=== PATIENT | female | born 1960 | race Caucasian/White ===

== ENCOUNTER 2016-10-10 09:28 | Observation (INO) | payer SELFPAY ==
[~2016-10-10] VITALS: Ht 162.6 cm; Wt 115.6 kg
[~2016-10-10 09:28] MED LIST: ADLT ASA LOW81 MG PO; AMLODIPINE10 MG OR; AMLODIPINE5 MG PO; AMOXICILLIN500 MG PO; ASPIRIN81 MG PO; CEPHALEXIN500 MG PO; CHERATUSSIN OR; CIPROFLOXACN500 MG PO; CLONIDINE0.1 MG PO; CRESTOR20 MG PO; CYCLOBENZAPR10 MG OR; ESCITALOPRAM OX10 MG PO; FLEXERIL OR; FLEXERIL PO; FLEXERIL10 MG PO; FLONASE NASAL50 MCG; HYDROCHLORO25 MG/TAB PO; HYDROCHLOROT25 MG OR; ISOSORB MONO60 MG PO; LISINOP/HCTZ1 TA1 PO; LISINOPRIL40 MG OR; LISINOPRIL40 MG PO; LORTAB 10-325 M1 TAB PO; LORTAB 5 OR; LOSARTAN POT100 MG PO; LOVASTATIN40 M1 OR; MECLIZINE25 MG PO; METOPROL TAR50 MG PO; MEVACOR20 MG OR; MOTRIN800 MG PO; NAPROSYN500 MG OR; NAPROXEN EC500 MG OR; NAPROXEN500 MG PO; NITROGLYCER0.4 MG PO; NORVASC10 M1 OR; OMEPRAZOLE20 MG PO; OXYCODONE HCL5 MG PO; PANTOPRAZOLE SO40 MG PO; PLAVIX75 MG PO; PROTONIX40 MG PO; PYRIDIUM200 MG PO; ROBITUSSIN AC10 ML PO; SIMVASTATIN40 MG PO; TRAMADOL HCL100 MG OR; TRAMADOL HCL50 MG PO; ULTRAM50 M1 PO; ULTRAM50 MG OR; ZESTRIL OR; ZITHROMAX250 MG OR; ZOFRAN ODT4 MG SL
--- NOTE | 2016-10-10 09:30 | NUR ---
PT TO ROOM 10 VIA WHEELCHAIR.
[2016-10-10] MEDS ORDERED: LISINOP/HCTZ1 TA2 PO (09:58)
[2016-10-10 10:22] LABS: HEMATOCRIT 43.6 % (37.0-47.0); HEMOGLOBIN 14.4 g/dl (12.0-16.0); IMMATURE GRANULOCYTES 0.2 % (0.0-1.0); MEAN CELL VOLUME 89.3 fL CALC (80.0-100.0); MEAN CORPUSCULAR HGB 29.5 pG CALC (26.0-32.0); NEUT# 3.38 thou/uL (2.00-7.15); RED BLOOD COUNT 4.88 mill/uL (4.20-5.60); RED CELL DISTRI WIDTH 12.8 % (11.5-15.5)
--- NOTE | 2016-10-10 10:28 | NUR ---
PT UP AMB TO RESTROOM WITHOUT COMPLAINT. VSS. NO SOB, NO CP
[2016-10-10 10:36] LABS: ALKALINE PHOSPHATASE 99 u/l (38-126); AMYLASE 60 u/l (30-110); ANION GAP 14 (6-22 (CALC)); BILIRUBIN, TOTAL 0.6 mg/dL (0.0-1.4); BUN 15 mg/dL (7-17); BUN/CREATININE RATIO 24 (12-20 (CALC)); CALCIUM 9.4 mg/dL (8.4-10.2); CARBON DIOXIDE 26 mmol/l (22-30); CHLORIDE 106 mmol/l (95-108); CREATININE 0.6 mg/dL (0.5-1.0); GFR > 60 ML/MIN (>=60 (CALC)); GFR FOR AFR.AMER. > 60 ML/MIN (>=60 (CALC)); GLUCOSE 114 mg/dL (65-105); LIPASE 176 u/l (23-300); POTASSIUM 4.3 mmol/l (3.5-5.1); SGOT/AST 81 u/l (14-36); SGPT/ALT 122 u/l (9-52); SODIUM 141 mmol/l (137-146); TOTAL PROTEIN 7.4 g/dL (6.3-8.2)
[2016-10-10 10:44] LABS: PROTHROMBIN TIME 10.4 SECONDS (9.0-12.5)
[2016-10-10 10:48] LABS: MYOGLOBIN 44 ng/mL (0 - 62)
--- NOTE | 2016-10-10 11:13 | NUR ---
PT RESTING IN NO ACUTE DISTRESS. DENIES PAIN OR PRESSURE, NO SOB. SR X2 FOR SAFETY.
--- NOTE | 2016-10-10 12:10 | NUR ---
PT RT SIDE LYING,STATES NO FURTHER EPISODES OF CP OR PRESSURE. VSS. PT APPEARS COMFORTABLE
--- NOTE | 2016-10-10 12:28 | NUR ---
ATTEMTPED TO CALL REPORT, NURSE UNAVAILABLE AT THIS TIME.
[2016-10-10 12:38] LABS: URINE BILIRUBIN - DIPSTICK NEGATIVE (NEGATIVE); URINE BLOOD DIPSTICK NEGATIVE (NEGATIVE); URINE CLARITY CLEAR; URINE COLOR YELLOW; URINE GLUCOSE - DIPSTICK NEGATIVE (NEGATIVE); URINE KETONE NEGATIVE (NEGATIVE); URINE LEUK ESTERASE NEGATIVE (NEGATIVE); URINE NITRITE - DIPSTICK NEGATIVE (Negative); URINE PROTEIN - DIPSTICK NEGATIVE (NEG-TRACE); URINE SPECIFIC GRAVITY 1.015; URINE UROBILINOGEN - DIPSTICK 0.2 E.U./dL (0.2)
--- NOTE | 2016-10-10 12:49 | NUR ---
CALLED REPORT TO SONA KAPADIA MS2.PT TRANSPORTED TO [facility] VIA IN STABLE CONDITION
--- NOTE | 2016-10-10 12:56 | NUR ---
PT ARRIVED TO FLOOR VIA WC ACCOMPANIED BY SONA MEJIA. PT ORIENTED TO ROOM AND EQUIPMENT. STEADY GAIT. DENIES CHEST PAIN AT THIS TIME. REPORTS NUMBNESS TO LEFT ARM, UNCHANGED SINCE BEFORE ARRIVING IN HOSPITAL. REPORTING OF CONCERNS ENCOURAGED. PLAN OF CARE DISCUSSED. CALL LIGHT REVIEWED AND IN REACH. PT STATES UNDERSTANDING.
[2016-10-10 13:17] VITALS: BP 151/79
[2016-10-10 15:24] VITALS: BP 104/43
[2016-10-10 16:49] VITALS: BP 127/57
--- NOTE | 2016-10-10 17:45 | NUR ---
PT DENIES CHEST PAIN. NO COMPLAINTS AT THIS TIME. REPORTING OF CONCERNS ENCOURAGED.
--- NOTE | 2016-10-10 19:00 | NUR ---
RECEIVED REPORT ON PATIENT. NO ACUTE DISTRESS NOTED. PATIENT RESTING IN BED
[2016-10-10 19:45] VITALS: BP 111/57
--- NOTE | 2016-10-11 | NUR ---
PATIENT RESTING IN BED QUIETLY. NO ACUTE DISTRESS NOTED.
[2016-10-11 00:35] VITALS: BP 106/57
--- NOTE | 2016-10-11 04:00 | NUR ---
PATIENT IS RESTING COMFORTABLY. NO ACUTE DISTRESS NOTED.
[2016-10-11 04:10] VITALS: BP 125/65
--- NOTE | 2016-10-11 07:13 | NUR ---
REPORT RECEIVED FROM SONA TRONCOSO. PT SLEEPING AT THIS TIME. CALL LIGHT WITHIN REACH. WILL CONTINUE TO MONITOR.
[2016-10-11 08:42] VITALS: BP 128/59
[2016-10-11 08:44] VITALS: BP 128/59
--- NOTE | 2016-10-11 09:00 | NUR ---
PT SITTING ON COUCH AT BEDSIDE. DENIES PAIN. REPORTING OF CONCERNS ENCOURAGED. PLAN OF CARE DISCUSSED. CALL LIGHT REVIEWED AND IN REACH. PT STATES ANTICIPATION OF DISCHARGE. DISCHARGE PROCESS DISCUSSED. PT STATES UNDERSTANDING.
[2016-10-11] MEDS ORDERED: ASPIRIN EC81 MG PO (10:14)
--- NOTE | 2016-10-11 11:35 | NUR ---
EDUCATION PAMPHLETS PROVIDED TO PT ON CARDIAC DIET.
--- NOTE | 2016-10-11 12:58 | NUR ---
Discharge instructions given. Patient verbalizes understanding of same. Discharged in stable condition via Ambulatory to Home with family. All belongings sent with pt.
== END 2016-10-11 12:50 | disposition home or self-care (01) | DRG 313 ==
LOC: ENPENDDIS → ED 09:28 → ED-I 11:07 → ED 12:00 → MS2 12:01
PROVIDERS: Emergency Medicine; ADMIT Internal Medicine; ATTEND Internal Medicine
PROC: 3E0234Z Introduction of Serum, Toxoid and Vaccine into Muscle, Percutaneous Approach (ICD-10-PCS; principal; 2016-10-11)
DX: R07.9 Chest pain, unspecified (principal); I25.2 Old myocardial infarction; I10 Essential (primary) hypertension; I25.10 Atherosclerotic heart disease of native coronary artery without angina pectoris; E78.5 Hyperlipidemia, unspecified; F32.9 Major depressive disorder, single episode, unspecified; Z86.73 Personal history of transient ischemic attack (TIA), and cerebral infarction without residual deficits; M19.90 Unspecified osteoarthritis, unspecified site; K21.9 Gastro-esophageal reflux disease without esophagitis; R79.89 Other specified abnormal findings of blood chemistry; E78.00 Pure hypercholesterolemia, unspecified; R06.02 Shortness of breath; Z23 Encounter for immunization; Z91.14 Patient's other noncompliance with medication regimen; Z95.5 Presence of coronary angioplasty implant and graft
CPT/HCPCS: G0378

== ENCOUNTER 2017-01-04 10:26 | Emergency (ER) | payer SELFPAY ==
[~2017-01-04] VITALS: Ht 162.6 cm; Wt 120.0 kg
[~2017-01-04 10:26] MED LIST changes: +ASPIRIN EC81 MG PO; +LISINOP/HCTZ1 TA2 PO
[2017-01-04] MEDS ORDERED: LEXAPRO10 MG PO (10:32)
[2017-01-04] MEDS ORDERED: SIMVASTATIN40 MG PO (10:32)
[2017-01-04] MEDS ORDERED: MOTRIN800 MG PO (13:13)
[2017-01-04] MEDS ORDERED: FLEXERIL PO (13:13)
[2017-01-04] MEDS ORDERED: TRAMADOL HYDROC50 MG PO (13:13)
[2017-01-04 13:16] VITALS: BP 158/89
== END 2017-01-04 13:22 | disposition home or self-care (01) | DRG 552 ==
LOC: ED 10:26
DX: M54.42 Lumbago with sciatica, left side (principal); M54.41 Lumbago with sciatica, right side; X50.0XXA Overexertion from strenuous movement or load, initial encounter; Y93.89 Activity, other specified; Y92.89 Other specified places as the place of occurrence of the external cause

== ENCOUNTER 2017-02-18 18:33 | Emergency (ER) | payer SELFPAY ==
[~2017-02-18] VITALS: Ht 162.6 cm; Wt 117.0 kg
[~2017-02-18 18:33] MED LIST changes: +LEXAPRO10 MG PO; +TRAMADOL HYDROC50 MG PO
[2017-02-18] MEDS ORDERED: AMOXICILLIN500 MG PO (18:56)
[2017-02-18] MEDS ORDERED: PERCOCET 5/325M1 TAB PO (18:56)
[2017-02-18 19:13] VITALS: BP 116/56
== END 2017-02-18 19:20 | disposition home or self-care (01) | DRG 153 ==
LOC: ED 18:33
DX: H66.92 Otitis media, unspecified, left ear (principal); I10 Essential (primary) hypertension; T16.2XXA Foreign body in left ear, initial encounter; I25.2 Old myocardial infarction; E78.5 Hyperlipidemia, unspecified; F32.9 Major depressive disorder, single episode, unspecified; X58.XXXA Exposure to other specified factors, initial encounter; Z86.73 Personal history of transient ischemic attack (TIA), and cerebral infarction without residual deficits; Z95.5 Presence of coronary angioplasty implant and graft

== ENCOUNTER 2017-06-09 17:05 | Emergency (ER) | payer OTHER ==
[~2017-06-09] VITALS: Ht 162.6 cm; Wt 118.0 kg
[~2017-06-09 17:05] MED LIST changes: +PERCOCET 5/325M1 TAB PO
[2017-06-09] MEDS ORDERED: LEXAPRO10 MG PO (18:03)
[2017-06-10] MEDS ORDERED: PERCOCET 5/325M1 TAB PO (05:18)
[2017-06-10 05:54] VITALS: BP 182/80
== END 2017-06-10 06:00 | disposition home or self-care (01) | DRG 605 ==
LOC: ED 17:05
DX: S40.022A Contusion of left upper arm, initial encounter (principal); S80.02XA Contusion of left knee, initial encounter; S80.01XA Contusion of right knee, initial encounter; I10 Essential (primary) hypertension; E78.5 Hyperlipidemia, unspecified; G89.29 Other chronic pain; M54.5 Low back pain; I25.2 Old myocardial infarction; F32.9 Major depressive disorder, single episode, unspecified; W01.0XXA Fall on same level from slipping, tripping and stumbling without subsequent striking against object, initial encounter; Y93.89 Activity, other specified; Y92.512 Supermarket, store or market as the place of occurrence of the external cause; Z86.73 Personal history of transient ischemic attack (TIA), and cerebral infarction without residual deficits; Z95.5 Presence of coronary angioplasty implant and graft

== ENCOUNTER 2017-09-12 15:05 | Emergency (ER) | payer SELFPAY ==
[~2017-09-12] VITALS: Ht 162.6 cm; Wt 114.0 kg
[2017-09-12] MEDS ORDERED: NITROSTAT0.4 MG SL (15:31)
[2017-09-12 16:10] LABS: URINE BILIRUBIN - DIPSTICK NEGATIVE (NEGATIVE); URINE BLOOD DIPSTICK NEGATIVE (NEGATIVE); URINE COLOR YELLOW; URINE GLUCOSE - DIPSTICK NEGATIVE (NEGATIVE); URINE KETONE TRACE mg/dL (NEGATIVE); URINE LEUK ESTERASE TRACE (NEGATIVE); URINE NITRITE - DIPSTICK NEGATIVE (Negative); URINE PROTEIN - DIPSTICK NEGATIVE (NEG-TRACE); URINE SPECIFIC GRAVITY 1.025
[2017-09-12 16:12] LABS: HEMATOCRIT 47.4 % (37.0-47.0); HEMOGLOBIN 15.7 g/dl (12.0-16.0); IMMATURE GRANULOCYTES 0.1 % (0.0-1.0); MEAN CORPUSCULAR HGB 30.5 pG CALC (26.0-32.0); MEAN CORPUSCULAR HGB CONC 33.1 g/L CALC (32.0-36.0); NEUT# 4.45 thou/uL (2.00-7.15); RED BLOOD COUNT 5.15 mill/uL (4.20-5.60); RED CELL DISTRI WIDTH 12.7 % (11.5-15.5); URINE CLARITY CLEAR
[2017-09-12 16:23] LABS: ALBUMIN 4.4 g/dL (3.2-5.0); ALKALINE PHOSPHATASE 120 u/l (38-126); ANION GAP 17 (6-22 (CALC)); BILIRUBIN, TOTAL 0.7 mg/dL (0.0-1.4); BUN 17 mg/dL (7-17); BUN/CREATININE RATIO 19 (12-20 (CALC)); CARBON DIOXIDE 27 mmol/l (22-30); CHLORIDE 106 mmol/l (95-108); CREATININE 0.9 mg/dL (0.5-1.0); GFR > 60 ML/MIN (>=60 (CALC)); GFR FOR AFR.AMER. > 60 ML/MIN (>=60 (CALC)); LIPASE 220 u/l (23-300); POTASSIUM 4.4 mmol/l (3.5-5.1); SGOT/AST 124 u/l (14-36); SGPT/ALT 170 u/l (9-52); SODIUM 145 mmol/l (137-146); TOTAL PROTEIN 7.7 g/dL (6.3-8.2)
[2017-09-12] MEDS ORDERED: HYDROCO/APAP1 TA9 PO (17:50)
[2017-09-12] MEDS ORDERED: ZOFRAN4 M1 PO (17:50)
[2017-09-12 17:53] VITALS: BP 142/70
== END 2017-09-12 18:01 | disposition home or self-care (01) | DRG 392 ==
LOC: ED 15:05
PROVIDERS: Family Medicine
DX: R10.11 Right upper quadrant pain (principal); E78.5 Hyperlipidemia, unspecified; I10 Essential (primary) hypertension; M19.90 Unspecified osteoarthritis, unspecified site; I25.2 Old myocardial infarction; Z86.73 Personal history of transient ischemic attack (TIA), and cerebral infarction without residual deficits; Z95.5 Presence of coronary angioplasty implant and graft
CPT/HCPCS: Q9967

== ENCOUNTER 2017-10-02 08:34 | Emergency (ER) | payer SELFPAY ==
[~2017-10-02] VITALS: Ht 162.6 cm; Wt 119.4 kg
[~2017-10-02 08:34] MED LIST changes: +HYDROCO/APAP1 TA9 PO; +NITROSTAT0.4 MG SL; +ZOFRAN4 M1 PO
[2017-10-02 09:43] LABS: URINE BILIRUBIN - DIPSTICK NEGATIVE (NEGATIVE); URINE BLOOD DIPSTICK NEGATIVE (NEGATIVE); URINE CLARITY CLEAR; URINE COLOR YELLOW; URINE GLUCOSE - DIPSTICK NEGATIVE (NEGATIVE); URINE KETONE NEGATIVE (NEGATIVE); URINE LEUK ESTERASE NEGATIVE (NEGATIVE); URINE NITRITE - DIPSTICK NEGATIVE (Negative); URINE PH 5.5 (4.5-8.0); URINE PROTEIN - DIPSTICK NEGATIVE (NEG-TRACE); URINE SPECIFIC GRAVITY 1.025; URINE UROBILINOGEN - DIPSTICK 0.2 E.U./dL (0.2)
[2017-10-02 09:47] LABS: HEMATOCRIT 47.4 % (37.0-47.0); HEMOGLOBIN 15.6 g/dl (12.0-16.0); IMMATURE GRANULOCYTES 0.2 % (0.0-1.0); MEAN CELL VOLUME 91.3 fL CALC (80.0-100.0); MEAN CORPUSCULAR HGB 30.1 pG CALC (26.0-32.0); MEAN CORPUSCULAR HGB CONC 32.9 g/L CALC (32.0-36.0); NEUT# 6.23 thou/uL (2.00-7.15); RED BLOOD COUNT 5.19 mill/uL (4.20-5.60); RED CELL DISTRI WIDTH 12.6 % (11.5-15.5)
[2017-10-02 10:10] LABS: ALBUMIN 4.2 g/dL (3.2-5.0); ALKALINE PHOSPHATASE 133 u/l (38-126); ANION GAP 18 (6-22 (CALC)); BILIRUBIN, TOTAL 0.8 mg/dL (0.0-1.4); BUN 14 mg/dL (7-17); BUN/CREATININE RATIO 18 (12-20 (CALC)); CARBON DIOXIDE 26 mmol/l (22-30); CHLORIDE 103 mmol/l (95-108); CREATININE 0.8 mg/dL (0.5-1.0); GFR > 60 ML/MIN (>=60 (CALC)); GFR FOR AFR.AMER. > 60 ML/MIN (>=60 (CALC)); LIPASE 149 u/l (23-300); POTASSIUM 4.4 mmol/l (3.5-5.1); SGOT/AST 67 u/l (14-36); SGPT/ALT 129 u/l (9-52); SODIUM 142 mmol/l (137-146); TOTAL PROTEIN 7.6 g/dL (6.3-8.2)
[2017-10-02] MEDS ORDERED: MOTRIN400 MG PO (10:30)
[2017-10-02] MEDS ORDERED: ONDANSETRON4 MG PO (10:30)
[2017-10-02 10:41] VITALS: BP 154/87
== END 2017-10-02 11:01 | disposition home or self-care (01) | DRG 392 ==
LOC: ED 08:34
PROVIDERS: Family Medicine
DX: R10.11 Right upper quadrant pain (principal); R11.0 Nausea; R50.9 Fever, unspecified; R74.0 Nonspecific elevation of levels of transaminase and lactic acid dehydrogenase [LDH]
CPT/HCPCS: Q9967

== ENCOUNTER 2017-10-09 12:20 | Emergency (ER) | payer SELFPAY ==
[~2017-10-09] VITALS: Ht 162.6 cm; Wt 120.0 kg
[~2017-10-09 12:20] MED LIST changes: +MOTRIN400 MG PO; +ONDANSETRON4 MG PO
[2017-10-09 13:15] VITALS: BP 197/93
[2017-10-09] MEDS ORDERED: CORTISPORIN OTI10 ML AS (13:20)
[2017-10-09] MEDS ORDERED: AMOXICILLIN500 M2 PO (13:20)
[2017-10-09] MEDS ORDERED: CORTISPORIN OTI10 ML AD (13:20)
== END 2017-10-09 13:44 | disposition home or self-care (01) | DRG 156 ==
LOC: ED 12:20
PROC: 09C47ZZ Extirpation of Matter from Left External Auditory Canal, Via Natural or Artificial Opening (ICD-10-PCS; principal; 2017-10-09)
DX: T16.2XXA Foreign body in left ear, initial encounter (principal); E78.5 Hyperlipidemia, unspecified; H66.92 Otitis media, unspecified, left ear; I10 Essential (primary) hypertension; I25.2 Old myocardial infarction; M19.90 Unspecified osteoarthritis, unspecified site; X58.XXXA Exposure to other specified factors, initial encounter; Z95.5 Presence of coronary angioplasty implant and graft; Z86.73 Personal history of transient ischemic attack (TIA), and cerebral infarction without residual deficits

== ENCOUNTER 2018-01-10 18:54 | Observation (INO) | payer SELFPAY ==
[~2018-01-10] VITALS: Ht 162.6 cm; Wt 118.1 kg
[~2018-01-10 18:54] MED LIST changes: +AMOXICILLIN500 M2 PO; +CORTISPORIN OTI10 ML AD; +CORTISPORIN OTI10 ML AS
[2018-01-10] MEDS ORDERED: METOPROL TAR25 MG PO (19:25)
[2018-01-10] MEDS ORDERED: PREVACID15 M3 PO (19:26)
[2018-01-10] MEDS ORDERED: DEPRESSION (19:26)
[2018-01-10 19:49] LABS: HEMATOCRIT 42.8 % (37.0-47.0); HEMOGLOBIN 14.1 g/dl (12.0-16.0); IMMATURE GRANULOCYTES 0.5 % (0.0-1.0); MEAN CELL VOLUME 93.2 fL CALC (80.0-100.0); MEAN CORPUSCULAR HGB 30.7 pG CALC (26.0-32.0); MEAN CORPUSCULAR HGB CONC 32.9 g/L CALC (32.0-36.0); NEUT# 8.44 thou/uL (2.00-7.15); RED BLOOD COUNT 4.59 mill/uL (4.20-5.60); RED CELL DISTRI WIDTH 12.9 % (11.5-15.5)
[2018-01-10 20:10] LABS: ALBUMIN 4.1 g/dL (3.2-5.0); ALKALINE PHOSPHATASE 98 u/l (38-126); AMYLASE 56 u/l (30-110); ANION GAP 12 (6-22 (CALC)); BILIRUBIN, TOTAL 0.4 mg/dL (0.0-1.4); BUN 21 mg/dL (7-17); BUN/CREATININE RATIO 27 (12-20 (CALC)); CARBON DIOXIDE 25 mmol/l (22-30); CHLORIDE 112 mmol/l (95-108); CREATININE 0.8 mg/dL (0.5-1.0); GFR > 60 ML/MIN (>=60 (CALC)); GFR FOR AFR.AMER. > 60 ML/MIN (>=60 (CALC)); LIPASE 151 u/l (23-300); POTASSIUM 4.1 mmol/l (3.5-5.1); SGOT/AST 86 u/l (14-36); SGPT/ALT 157 u/l (9-52); SODIUM 145 mmol/l (137-146); TOTAL PROTEIN 7.5 g/dL (6.3-8.2)
[2018-01-10 21:05] VITALS: BP 153/85
[2018-01-11] VITALS (8 sets, daily range): BP systolic 148–192; BP diastolic 68–99
[2018-01-11 05:40] LABS: HEMATOCRIT 43.7 % (37.0-47.0); HEMOGLOBIN 14.1 g/dl (12.0-16.0); MEAN CELL VOLUME 94.8 fL CALC (80.0-100.0); MEAN CORPUSCULAR HGB 30.6 pG CALC (26.0-32.0); MEAN CORPUSCULAR HGB CONC 32.3 g/L CALC (32.0-36.0); RED BLOOD COUNT 4.61 mill/uL (4.20-5.60)
[2018-01-11 05:54] LABS: ANION GAP 11 (6-22 (CALC)); BUN 20 mg/dL (7-17); BUN/CREATININE RATIO 26 (12-20 (CALC)); CALCULATED LDLCHOLESTEROL 177 mg/dL (62-129 (CALC)); CARBON DIOXIDE 29 mmol/l (22-30); CHLORIDE 108 mmol/l (95-108); CHOLESTEROL HDL RATIO 4.5 (<4.4 (CALC)); CREATININE 0.8 mg/dL (0.5-1.0); GFR > 60 ML/MIN (>=60 (CALC)); GFR FOR AFR.AMER. > 60 ML/MIN (>=60 (CALC)); HDL CHOLESTEROL 58 mg/dL (>=40); POTASSIUM 4.2 mmol/l (3.5-5.1); SODIUM 143 mmol/l (137-146); TOTAL CHOLESTEROL 256 mg/dl (0-199); TOTAL TRIGLYCERIDES 108 mg/dl (30-149); VLDL CHOLESTROL 22 mg/dl (2-49 (CALC))
== END 2018-01-11 06:45 | disposition short-term general hospital (02) | DRG 282 ==
LOC: ED 18:54 → ED-I 20:00 → ED 20:32 → MS2 20:33 → ICU 01-11 01:31
PROVIDERS: Family Medicine; ADMIT Internal Medicine; ATTEND Internal Medicine
DX: I21.4 Non-ST elevation (NSTEMI) myocardial infarction (principal); I10 Essential (primary) hypertension; E78.5 Hyperlipidemia, unspecified; M19.90 Unspecified osteoarthritis, unspecified site; I25.10 Atherosclerotic heart disease of native coronary artery without angina pectoris; I73.9 Peripheral vascular disease, unspecified; I25.2 Old myocardial infarction; Z91.14 Patient's other noncompliance with medication regimen; Z95.5 Presence of coronary angioplasty implant and graft; Z86.73 Personal history of transient ischemic attack (TIA), and cerebral infarction without residual deficits
CPT/HCPCS: J1650

== ENCOUNTER 2018-11-23 14:54 | Emergency (ER) | payer SELFPAY ==
[~2018-11-23] VITALS: Ht 162.6 cm; Wt 125.0 kg
[~2018-11-23 14:54] MED LIST changes: +DEPRESSION; +METOPROL TAR25 MG PO; +PREVACID15 M3 PO
--- NOTE | 2018-11-23 16:02 | NUR ---
TX LATE DUE TO PT CARE PRIORITY
[2018-11-23 16:08] LABS: URINE BILIRUBIN - DIPSTICK NEGATIVE (NEGATIVE); URINE BLOOD DIPSTICK NEGATIVE (NEGATIVE); URINE COLOR YELLOW; URINE GLUCOSE - DIPSTICK NEGATIVE (NEGATIVE); URINE KETONE NEGATIVE (NEGATIVE); URINE LEUK ESTERASE NEGATIVE (NEGATIVE); URINE NITRITE - DIPSTICK NEGATIVE (Negative); URINE PH 5.5 (4.5-8.0); URINE PROTEIN - DIPSTICK NEGATIVE (NEG-TRACE); URINE SPECIFIC GRAVITY 1.025
[2018-11-23 16:10] LABS: HEMATOCRIT 44.3 % (37.0-47.0); HEMOGLOBIN 14.3 g/dl (12.0-16.0); IMMATURE GRANULOCYTES 0.4 % (0.0-5.0); MEAN CORPUSCULAR HGB 28.8 pG CALC (26.0-32.0); MEAN CORPUSCULAR HGB CONC 32.3 g/L CALC (32.0-36.0); NEUT# 7.19 thou/uL (2.00-7.15); RED BLOOD COUNT 4.97 mill/uL (4.20-5.60); RED CELL DISTRI WIDTH 13.8 % (11.5-15.5)
[2018-11-23 16:11] LABS: MEAN CELL VOLUME 89.1 fL CALC (80.0-100.0)
[2018-11-23 16:34] LABS: ANION GAP 12 (6-22 (CALC)); BUN 14 mg/dL (7-17); BUN/CREATININE RATIO 17 (12-20 (CALC)); CARBON DIOXIDE 26 mmol/l (22-30); CHLORIDE 103 mmol/l (95-108); CREATININE 0.8 mg/dL (0.5-1.0); GFR > 60 ML/MIN (>=60 (CALC)); GFR FOR AFR.AMER. > 60 ML/MIN (>=60 (CALC)); POTASSIUM 4.1 mmol/l (3.5-5.1); SODIUM 137 mmol/l (137-146)
[2018-11-23 17:30] LABS: TOTAL PROTEIN 6.7 g/dL (6.3-8.2)
[2018-11-23] MEDS ORDERED: ZPAK PO (18:29)
[2018-11-23] MEDS ORDERED: PROAIR HFA108 MCG/AC PO (18:29)
[2018-11-23] MEDS ORDERED: AUGMENTIN875TAB PO (18:29)
[2018-11-23 19:02] VITALS: BP 136/89
== END 2018-11-23 19:16 | disposition home or self-care (01) | DRG 195 ==
LOC: ED 14:54
PROVIDERS: Family Medicine
DX: J18.9 Pneumonia, unspecified organism (principal); I10 Essential (primary) hypertension; E78.5 Hyperlipidemia, unspecified; T46.5X6A Underdosing of other antihypertensive drugs, initial encounter; T46.6X6A Underdosing of antihyperlipidemic and antiarteriosclerotic drugs, initial encounter; Z91.128 Patient's intentional underdosing of medication regimen for other reason; Z86.73 Personal history of transient ischemic attack (TIA), and cerebral infarction without residual deficits
CPT/HCPCS: Q9967

== ENCOUNTER 2022-02-22 10:27 | Observation (INO) | payer MEDICARE ==
[2022-02-22] VITALS (15 sets, daily range): BP systolic 104–151; BP diastolic 49–106
[~2022-02-22] VITALS: Ht 162.6 cm; Wt 132.0 kg
[~2022-02-22 10:27] MED LIST changes: +AMIODARONE200 MG PO; +ASPIRIN ADULT L81 M2 PO; +ATORVASTATIN CA80 MG PO; +AUGMENTIN875TAB PO; +CLOPIDOGREL75 MG PO; +FIBER SELECT GUMMIES PO; +LASIX 40 MG TAB40 MG PO; +LISINOPRIL5 MG PO; +LOPRESSOR50 M1 PO; +MELATONIN MAXIM10 MG PO; +OMEPRAZOLE20 M2 PO; +POTASSIUM CHLO20 ME2 PO; +PROAIR HFA108 MCG/AC PO; +RANITIDINE150 MG PO; +REMERON15 MG PO; +ZPAK PO; +[UNRECOGNIZED DRUG - CODE] PO
[2022-02-22 11:26] LABS: HEMATOCRIT 41.2 % (37.0-47.0); HEMOGLOBIN 13.4 g/dl (12.0-16.0); MEAN CELL VOLUME 92.2 fL CALC (80.0-100.0); MEAN CORPUSCULAR HGB CONC 32.5 g/dL CAL (32.0-36.0); NEUT# 2.17 thou/uL (2.00-7.15); RED BLOOD COUNT 4.47 mill/uL (4.20-5.60); RED CELL DISTRI WIDTH 14.7 % (11.5-15.5)
[2022-02-22 11:41] LABS: ALBUMIN 3.4 g/dL (3.2-5.0); ALKALINE PHOSPHATASE 121 u/l (38-126); ANION GAP 9 (6-22 (CALC)); BILIRUBIN, TOTAL 1.4 mg/dL (0.0-1.4); BUN 12 mg/dL (7-17); BUN/CREATININE RATIO 16 (12-20 (CALC)); CARBON DIOXIDE 25 mmol/l (22-30); CHLORIDE 111 mmol/l (95-108); CPK 42 u/l (30-165); CREATININE 0.7 mg/dL (0.5-1.0); GFR FOR AFR.AMER. > 60 ML/MIN (>=60 (CALC)); GFR OTHER RACES > 60 ML/MIN (>=60 (CALC)); LIPASE 116 u/l (23-300); MAGNESIUM 1.8 mg/dL (1.6-2.3); POTASSIUM 3.9 mmol/l (3.5-5.1); SGOT/AST 57 u/l (14-36); SODIUM 141 mmol/l (137-146); TOTAL PROTEIN 6.7 g/dL (6.3-8.2)
[2022-02-23] VITALS: BP 124/69
[2022-02-23 00:19] VITALS: BP 124/69
[2022-02-23 04:29] VITALS: BP 114/59
[2022-02-23 05:41] LABS: CHOLESTEROL HDL RATIO 4.6 (<4.4 (CALC)); MAGNESIUM 1.9 mg/dL (1.6-2.3)
[2022-02-23 06:24] VITALS: BP 122/55
[2022-02-23] MEDS ORDERED: METFORMIN HCL500 M1 PO (11:02)
[2022-02-23] MEDS ORDERED: ALLERGY RELF10 M3 PO (11:03)
[2022-02-23] MEDS ORDERED: PROTONIX40 M2 PO (11:05)
[2022-02-23 15:45] VITALS: BP 140/82
[2022-02-23] MEDS ORDERED: LOPRESSOR50 M1 PO (17:36)
[2022-02-23] MEDS ORDERED: ATORVASTATIN CA80 MG PO (17:36)
[2022-02-23] MEDS ORDERED: ASPIRIN ADULT L81 M2 PO (17:37)
[2022-02-23] MEDS ORDERED: LASIX 40 MG TAB40 MG PO (17:38)
[2022-02-23] MEDS ORDERED: ELIQUIS5 MG PO (17:39)
[2022-02-23] MEDS ORDERED: LOSARTAN/HCT1 TA2 PO (17:40)
== END 2022-02-23 18:40 | disposition home or self-care (01) ==
LOC: ED 10:27 → ED-I 12:08 → ED 12:17 → MS2 12:18 → ICU 12:18 → MS2 13:28
PROVIDERS: Internal Medicine; ADMIT Internal Medicine; ATTEND Internal Medicine
DX: I48.92 Unspecified atrial flutter (principal); I11.0 Hypertensive heart disease with heart failure; I50.9 Heart failure, unspecified; I25.9 Chronic ischemic heart disease, unspecified; I25.10 Atherosclerotic heart disease of native coronary artery without angina pectoris; E11.9 Type 2 diabetes mellitus without complications; E78.5 Hyperlipidemia, unspecified; K58.1 Irritable bowel syndrome with constipation; F32.A Depression, unspecified; K21.9 Gastro-esophageal reflux disease without esophagitis; G47.33 Obstructive sleep apnea (adult) (pediatric); I25.2 Old myocardial infarction; T44.7X6A Underdosing of beta-adrenoreceptor antagonists, initial encounter; T46.5X6A Underdosing of other antihypertensive drugs, initial encounter; T50.2X6A Underdosing of carbonic-anhydrase inhibitors, benzothiadiazides and other diuretics, initial encounter; T50.1X6A Underdosing of loop [high-ceiling] diuretics, initial encounter; T45.526A Underdosing of antithrombotic drugs, initial encounter; T46.6X6A Underdosing of antihyperlipidemic and antiarteriosclerotic drugs, initial encounter; Z91.128 Patient's intentional underdosing of medication regimen for other reason; Z86.73 Personal history of transient ischemic attack (TIA), and cerebral infarction without residual deficits; Z95.1 Presence of aortocoronary bypass graft; Z95.5 Presence of coronary angioplasty implant and graft; Z79.82 Long term (current) use of aspirin; Z20.822 Contact with and (suspected) exposure to COVID-19
CPT/HCPCS: G0378; J1650

== ENCOUNTER 2022-11-13 13:05 | Emergency (ER) | payer MEDICARE ==
[2022-11-13] VITALS (19 sets, daily range): BP systolic 110–170; BP diastolic 73–108
[~2022-11-13] VITALS: Ht 162.6 cm; Wt 118.6 kg
[~2022-11-13 13:05] MED LIST changes: +ALLERGY RELF10 M3 PO; +ELIQUIS5 MG PO; +LOSARTAN/HCT1 TA2 PO; +METFORMIN HCL500 M1 PO; +PROTONIX40 M2 PO
[2022-11-13] MEDS ORDERED: MOTRIN800 MG PO (20:31)
[2022-11-13] MEDS ORDERED: CYCLOBENZAPRINE10 MG PO (20:31)
== END 2022-11-13 21:15 | disposition home or self-care (01) ==
LOC: ED 13:05
DX: M25.551 Pain in right hip (principal); I10 Essential (primary) hypertension; E11.9 Type 2 diabetes mellitus without complications; G40.909 Epilepsy, unspecified, not intractable, without status epilepticus; E78.5 Hyperlipidemia, unspecified; K21.9 Gastro-esophageal reflux disease without esophagitis; F32.A Depression, unspecified; I25.2 Old myocardial infarction; Z86.73 Personal history of transient ischemic attack (TIA), and cerebral infarction without residual deficits; Z95.1 Presence of aortocoronary bypass graft; Z95.5 Presence of coronary angioplasty implant and graft; Z79.84 Long term (current) use of oral hypoglycemic drugs

== ENCOUNTER 2023-03-21 11:30 | Emergency (ER) | payer MEDICARE, MEDICAID ==
[~2023-03-21] VITALS: Ht 162.6 cm; Wt 113.0 kg
[~2023-03-21 11:30] MED LIST changes: +CYCLOBENZAPRINE10 MG PO
[2023-03-21 11:38] VITALS: BP 142/95
[2023-03-21 11:46] VITALS: BP 141/90
[2023-03-21 12:14] LABS: BASO% 0.6 % (0-3); EOS% 1.4 % (0-8); HEMATOCRIT 44.7 % (37.0-47.0); HEMOGLOBIN 14.5 g/dl (12.0-16.0); IMMATURE GRANULOCYTES 0.2 % (0.0-5.0); LYMPH% 19.5 % (15-41); MEAN CELL VOLUME 93.3 fL CALC (80.0-100.0); MEAN CORPUSCULAR HGB 30.3 pG CALC (26.0-32.0); MEAN CORPUSCULAR HGB CONC 32.4 g/dL CAL (32.0-36.0); MONO% 9.7 % (2-13); NEUT# 3.41 thou/uL (2.00-7.15); NEUT% 68.6 % (42-76); RED BLOOD COUNT 4.79 mill/uL (4.20-5.60); RED CELL DISTRI WIDTH 14.1 % (11.5-15.5)
[2023-03-21 12:28] LABS: ALBUMIN 3.4 g/dL (3.2-5.0); ALKALINE PHOSPHATASE 98 u/l (38-126); ANION GAP 7 (6-22 (CALC)); BUN 12 mg/dL (7-17); BUN/CREATININE RATIO 13 (12-20 (CALC)); CARBON DIOXIDE 29 mmol/l (22-30); CHLORIDE 106 mmol/l (95-108); CREATININE 0.9 mg/dL (0.5-1.0); GFR FOR AFR.AMER. > 60 ML/MIN (>=60 (CALC)); GFR OTHER RACES > 60 ML/MIN (>=60 (CALC)); MAGNESIUM 1.8 mg/dL (1.6-2.3); POTASSIUM 4.3 mmol/l (3.5-5.1); SGOT/AST 57 u/l (14-36); SODIUM 138 mmol/l (137-146); TOTAL PROTEIN 6.4 g/dL (6.3-8.2)
[2023-03-21 12:35] LABS: ACT PARTIAL THROMBO TIME 27.7 SECONDS (20.0-32.5); PROTHROMBIN TIME 12.1 SECONDS (9.0-12.5)
[2023-03-21 12:41] LABS: INTERNATIONAL NORMALIZED RATIO 1.3 RATIO (0.7-1.3)
[2023-03-21 12:58] LABS: TSH, 3RD GENERATION 0.18 uIU/mL (0.47 - 4.68)
[2023-03-21 13:02] VITALS: BP 141/71
[2023-03-21 14:13] LABS: URINE BLOOD DIPSTICK Negative (NEGATIVE); URINE GLUCOSE - DIPSTICK 100 mg/dL (NEGATIVE); URINE KETONE Negative (NEGATIVE); URINE LEUK ESTERASE Negative (NEGATIVE); URINE NITRITE - DIPSTICK Negative (Negative); URINE PH 5.5 (4.5-8.0); URINE PROTEIN - DIPSTICK 30 mg/dL (NEG-TRACE); URINE SPECIFIC GRAVITY >=1.030
[2023-03-21 14:18] LABS: URINE COLOR Yellow
[2023-03-21 14:32] LABS: URINE EPITHELIAL CELLS MODERATE EPI/hpf (0-FEW)
[2023-03-21 14:33] LABS: URINE CALCIUM OXALATE CRYSTALS MODERATE lpf
[2023-03-21 15:01] VITALS: BP 161/83
[2023-03-21 15:13] VITALS: BP 161/83
== END 2023-03-21 15:39 | disposition home or self-care (01) ==
LOC: ED 11:30
PROVIDERS: Family Medicine
DX: D69.6 Thrombocytopenia, unspecified (principal); I48.91 Unspecified atrial fibrillation; E11.9 Type 2 diabetes mellitus without complications; G40.909 Epilepsy, unspecified, not intractable, without status epilepticus; E78.5 Hyperlipidemia, unspecified; I25.2 Old myocardial infarction; F32.A Depression, unspecified; K21.9 Gastro-esophageal reflux disease without esophagitis; Z79.84 Long term (current) use of oral hypoglycemic drugs; Z95.5 Presence of coronary angioplasty implant and graft; Z95.1 Presence of aortocoronary bypass graft